=== PATIENT | female | born 1990 | race Caucasian/White ===

== ENCOUNTER 2020-10-25 05:52 | Inpatient (IN) ==
[2020-10-25] MEDS ORDERED: Ringers Solution, Lactated 1,000 ML IVC ONE (06:41)
[2020-10-25] MEDS ORDERED: CeFAZolin 2,000 MG/50 ML BAG IVPB ONE (06:41)
[2020-10-25] MEDS ORDERED: Metoclopramide 10 MG/2 ML VIAL IVP ONE (06:41)
[2020-10-25] MEDS ORDERED: Famotidine 20 MG/2 ML VIAL IVP ONE (06:41)
[2020-10-25 07:31] LABS: Basophils # 0.1 K/mcL (0.0-0.2); Basophils % 0.4 %; Eosinophils # 0.2 K/mcL (0.0-0.6); Eosinophils % 1.4 %; Hematocrit 31.1 % (35.3-44.9); Immature Granulocytes % 1.5 % (0-4); Lymphocytes # 2.8 K/mcL (0.6-4.6); Lymphocytes % 19.9 %; Mean Corpuscular HGB Conc 32.2 g/dL (31.6-35.5); Mean Corpuscular Hemoglobin 27.2 pg (28.0-33.3); Mean Corpuscular Volume 84.7 fL (83.0-100.0); Mean Platelet Volume 10.6 fL (9.4-12.4); Monocytes # 0.7 K/mcL (0.0-1.3); Monocytes % 5.1 %; Neutrophils # 10.1 K/mcL (1.6-8.9); Platelet Count 205 K/mcL (140-400); Red Blood Count 3.67 M/mcL (3.82-4.97); Red Cell Distribution Width 14.6 % (11.5-14.5); Segmented Neutrophils % 71.7 %; White Blood Count 14.1 K/mcL (4.3-11.1)
[2020-10-25] MEDS ORDERED: Ringers Solution, Lactated 1,000 ML ONE ×2 (07:38→11:02)
[2020-10-25] MEDS ORDERED: *HR* Morphine Sulfate/PF 10 MG/10 ML AMPUL ONE (07:46)
[2020-10-25] MEDS ORDERED: *HR* Phenylephrine 10 MG/ML VIAL ONE (07:46)
[2020-10-25 08:16] LABS: Amphetamine Screen,Urine Negative ng/mL (Cutoff=1000); Barbiturate Screen,Urine Negative ng/mL (Cutoff=200); Benzodiazepines Screen,Urine Negative ng/mL (Cutoff=200); Cannabinoid Screen,Urine Negative ng/mL (Cutoff = 50); Cocaine Screen,Urine Negative ng/mL (Cutoff= 300); Opiate Screen,Urine Negative ng/mL (Cutoff=300); Phencyclidine Screen,Urine Negative ng/mL (Cutoff=25)
[2020-10-25 08:26] LABS: Adenovirus Not Detected (Not Detect); Bordetella Pertussis Not Detected (Not Detect); Chlamydophila pneumoniae Not Detected (Not Detect); Coronavirus 229E Not Detected (Not Detect); Coronavirus HKU1 Not Detected (Not Detect); Coronavirus NL63 Not Detected (Not Detect); Coronavirus OC43 Not Detected (Not Detect); Human Metapneumovirus Not Detected (Not Detect); Human Rhinovirus/Enterovirus Not Detected (Not Detect); Influenza A Subtype 2009 H1 Not Detected (Not Detect); Influenza B Not Detected (Not Detect); Mycoplasma pneumoniae Not Detected (Not Detect); Parainfluenza Virus 1 Not Detected (Not Detect); Parainfluenza Virus 2 Not Detected (Not Detect); Parainfluenza Virus 3 Not Detected (Not Detect); Parainfluenza Virus 4 Not Detected (Not Detect); Respiratory Syncytial Virus Not Detected (Not Detect); SARS-CoV-2 Not Detected (Not Detect)
[2020-10-25] MEDS ORDERED: CeFAZolin Syr 3,000MG/30 ML 3,000 MG/30 ML SYRINGE IVPB ONE (08:56)
[2020-10-25] MEDS ORDERED: Oxytocin 20 units/ LR 1000 mL 40 UNIT/2,000 ML BAG IVC ONE (09:00)
[2020-10-25] MEDS ORDERED: Ondansetron 4 MG/2 ML VIAL ONE (10:55)
[2020-10-25] MEDS ORDERED: Acetaminophen IV 1,000 MG/100 ML BAG ONE (11:31)
[2020-10-25] MEDS ORDERED: Sennosides 8.6 MG TABLET PO PRN (14:46)
[2020-10-25] MEDS ORDERED: Rho Immune Globulin 1,500 UNIT SYRINGE IM ONE (14:46)
[2020-10-25] MEDS ORDERED: Ringers Solution, Lactated 1,000 ML IVC SCH (14:46)
[2020-10-25] MEDS ORDERED: Metoclopramide 10 MG/2 ML VIAL IVP PRN (14:46)
[2020-10-25] MEDS ORDERED: Simethicone 80 MG TAB.CHEW PO PRN (14:46)
[2020-10-25] MEDS: Ondansetron 4 MG/2 ML VIAL IVP PRN ×2 (15:30→21:16)
[2020-10-25] MEDS ORDERED: Ondansetron 4 MG/2 ML VIAL IVP PRN ×2 (17:34→21:38)
[2020-10-25] MEDS ORDERED: *HR* Enoxaparin 60 MG/0.6 ML SYRINGE SQ SCH (18:00)
[2020-10-25] MEDS: Oxytocin 20 units/ LR 1000 mL 20 UNIT/1,000 ML BAG IVC SCH (20:12)
[2020-10-25] MEDS ORDERED: Acetaminophen IV 1,000 MG/100 ML BAG IVPB PRN (21:32)
[2020-10-26] MEDS: Ondansetron 4 MG/2 ML VIAL IVP PRN (05:48)
[2020-10-26] MEDS: Oxytocin 20 units/ LR 1000 mL 20 UNIT/1,000 ML BAG IVC SCH (05:49)
[2020-10-26 05:53] LABS: Basophils # 0.1 K/mcL (0.0-0.2); Basophils % 0.3 %; Eosinophils # 0.1 K/mcL (0.0-0.6); Eosinophils % 0.5 %; Hemoglobin 8.6 g/dL (11.5-15.4); Immature Granulocytes % 1.2 % (0-4); Lymphocytes # 2.8 K/mcL (0.6-4.6); Lymphocytes % 18.6 %; Mean Corpuscular HGB Conc 31.9 g/dL (31.6-35.5); Mean Corpuscular Hemoglobin 27.4 pg (28.0-33.3); Mean Platelet Volume 10.8 fL (9.4-12.4); Monocytes # 0.9 K/mcL (0.0-1.3); Platelet Count 178 K/mcL (140-400); Red Blood Count 3.14 M/mcL (3.82-4.97); Red Cell Distribution Width 14.7 % (11.5-14.5); Segmented Neutrophils % 73.4 %
[2020-10-26] MEDS: *HR* Enoxaparin 60 MG/0.6 ML SYRINGE SQ SCH ×2 (05:55→19:07)
[2020-10-26] MEDS: Ibuprofen 600 MG TABLET PO PRN ×2 (11:51→19:12)
[2020-10-26] MEDS: Prenatal Vit/FA 1 EACH TABLET PO SCH (19:14)
[2020-10-26] MEDS: *HR* OxyCODONE/APAP 5/325 TABLET PO PRN (23:12)
[2020-10-27] MEDS: *HR* Enoxaparin 60 MG/0.6 ML SYRINGE SQ SCH (08:00)
[2020-10-27] MEDS: Prenatal Vit/FA 1 EACH TABLET PO SCH (08:00)
[2020-10-27] MEDS: *HR* OxyCODONE/APAP 5/325 TABLET PO PRN (08:04)
[2020-10-27] MEDS: Ondansetron ODT 4 MG TAB.RAPDIS SL PRN ×2 (10:11→13:16)
[2020-10-27] MEDS: Ibuprofen 600 MG TABLET PO PRN ×2 (13:16→23:51)
[2020-10-28 08:07] VITALS: BP 132/85
[2020-10-28] MEDS: Prenatal Vit/FA 1 EACH TABLET PO SCH (08:08)
[2020-10-28] MEDS: Ibuprofen 600 MG TABLET PO PRN (08:08)
[2020-10-28] MEDS: *HR* Enoxaparin 60 MG/0.6 ML SYRINGE SQ SCH (08:09)
== END 2020-10-28 10:12 | disposition home or self-care (01) | DRG 539 ==
LOC: 1NENULAB 05:52 → 1NENUOBS 14:41
PROVIDERS: ADMIT Obstetrics & Gynecology; ATTEND Obstetrics & Gynecology